=== PATIENT | male | born 1995 | race Caucasian/White ===

== ENCOUNTER 2018-09-18 18:47 | Emergency (ER) | payer BC, SELFPAY ==
[2018-09-18 18:47] VITALS: BP 165/91; PULSE 79; RESP 18; TEMP 36.2; O2SAT 98; BMI 44.3
--- NOTE | 2018-09-18 19:00 | ED.DCSUM_ITS ---
- ER Visit Summary Date of Service: 09/18/18 Chief Complaint: Tooth pain History of Present Illness: The patient is a 23 M who has some tooth pain. He has had this for 1 week. Is worse over the past hour. He has hot and cold sensitivity. No fevers. No facial swelling. He tried Tylenol without any reli ef. He denies seeing a dentist. Physical Examination: Vital signs reviewed. Mouth exam reveals widespread dental decay. Teeth on the right lower are all tender. There is no gingival abscess. Test Results: None performed Emergency Department Course and Treatment: Patient will be treated with Pen-Vee K and naproxen. Same for home. He will need to see a dentist and follow-up Treatment Plan: [] Disposition: Discharge Impression: Odontalgia This note was generated with [employer] dictation software. It may contain incorrect words, spelling, and punctuation that were not noted in review of the chart prior to signing ED Disposition - Plan for ED Patient: Referrals: Abdulaziz Vivas III, MD [Primary Care Provider] -
--- NOTE | 2018-09-18 19:00 | ED.DEP ---
ED Disposition - Plan for ED Patient: Disposition: Home or Assisted Living Instructions: ED Tooth Pain Prescriptions: Naproxen [Naprosyn] 500 mg PO BID PRN #20 tab Penicillin V Potassium 500 mg PO 4X/DAY #28 tab Referrals: Abdulaziz Vivas III, MD [Primary Care Provider] -
[2018-09-18] MEDS: Penicillin Vk 250 MG Tablet 500 MG PO (19:08)
[2018-09-18] MEDS: Naproxen 500 MG Tablet PO (19:08)
[2018-09-18 19:14] VITALS: BP 156/85; PULSE 72; RESP 16; O2SAT 97
== END 2018-09-18 19:16 | disposition home or self-care (01) ==
LOC: ED 19:10
PROVIDERS: Emergency Provider Emergency Medicine; Family Provider Family Medicine; PCP Family Medicine
DX: K02.9 Dental caries, unspecified (principal); Z72.0 Tobacco use
CPT/HCPCS: 99283

== ENCOUNTER 2022-08-29 17:31 | Emergency (ER) | payer BC, SELFPAY ==
[2022-08-29 17:34] VITALS: BP 163/69; PULSE 100; RESP 17; TEMP 36.7; O2SAT 98; BMI 42.8
--- NOTE | 2022-08-29 17:56 | EDS_ITS ---
HPI HPI - Psych History of Present Illness Chief Complaint: Mental Health Detail of Chief Complaint: Depression, suicidal ideation Informant: patient and spouse/S.O. Narrative Narrative: Patient presents per recommendation of counseling center for psychiatric evaluation. He reports a longstanding history of depression since he was a child. 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 His is at bedside with him and states that he does seem to be depressed in the off season and is having problems with insomnia. When he does sleep he has nightmares. He has had intermittent thoughts of harming himself by shooting himself. He reported he does have access to guns in the home that are locked up. states that she sees a counselor at the counseling center and had mentioned to her counselor recently that she thought her would benefit from treatment. They recommended he call for an appointment to be evaluated. When they called today they were told that family take walk-ins and they were closing in 14 minutes. During the questioning it came up that he had thoughts of hurting himself and he was advised that he needed to present to the emergency room. If he did not present to the emergency room they would send the telephone surveyor to his home to check on him. Patient denies any prior suicide attempt. [facility] Medical History (Updated 08/29/22 @ 18:[address] Coco Faust MD) Asthma Depression Home Medications hydroxyzine HCl 50 mg tablet 50 mg PO BID PRN anxiety, insomnia #20 tabs 08/29/22 [Rx Last Taken Unknown] Allergy/AdvReac Type Severity Reaction Status Date / Time levofloxacin [From Levaquin] Allergy Low white Verified 08/29/22 17:37 blood cell Social History (Updated 08/29/22 @ 18:[address] Coco Faust MD) Smoking Status: Current every day smoker tobacco type: e-cigarettes alcohol intake: never substance use type: does not use ROS ROS ED Constitutional Constitutional ED: Denies chills or fever(s) Eyes Eyes: Denies change in vision or discharge from eye(s) ENT ENT ED: Denies discharge from eye(s), rhinorrhea or sore throat Cardiovascular Cardiovascular: Denies chest pain or palpitations Respiratory/Chest Respiratory/Chest: Denies cough or dyspnea Gastrointestinal Gastrointestinal: Denies abdominal pain, diarrhea, nausea or vomiting Genitourinary Genitourinary ED: Denies difficulty urinating or dysuria Musculoskeletal Musculoskeletal: Denies back pain or extremity pain Integumentary Denies Abrasions or rash Neurologic Neurologic: Denies headache(s) or weakness Psychiatric Psychiatric: Reports depression and suicidal ideation Endocrine Endocrinology: Denies polydipsia or polyuria Allergic/Immunologic Allergic/Immunologic ED: Denies lip swelling or urticaria EXAM Physical Exam Const Vital Signs: 08/29/22 17:34 Temperature 98.1 F Temperature Source Temporal Pulse Rate 100 Respiratory Rate 17 Blood Pressure 163/69 H Blood Pressure Mean 100 Pulse Ox 98 Oxygen Delivery Method Room Air Positive well nourished and well developed General Appearance ED: well developed HEENT Reports normocephalic and head/scalp atraumatic Eyes PERRL and EOMs intact bilaterally Neck supple Chest Wall inspection of chest normal and palpation of chest normal Resp normal respiratory effort and clear to auscultation bilaterally Cardio regular rate and regular rhythm GI normal to inspection, nondistended, normoactive bowel sounds Palpation: soft Back/Spine no CVA tenderness Extremity normal to inspection Neuro oriented x3 and no sensory deficits noted Sensorium / Orientation: alert Motor Exam: strength 5/5 throughout Psych mental status grossly normal Appearance: grossly normal, appropriate and well kempt Activity / Motor Behavior: appropriate eye contact Speech: normal speech Mood & Affect: depressed Thought Process: normal thought process Skin no rashes or lesions noted MDM MDM MDM Narrative Medical decision making narrative: While patient does admit to some suicidal ideation with a plan, he states this has been an ongoing problem for several years. He is not to the point where he recognizes he needs some help and reached out today to get that help. I will have social work speak with the patient as well. At this point he is willing to have the guns locked and for him to not have access to the herman. is willing to ensure that he does not have medication access, etc. Treatment and Re-Evaluation Narrative: Patient seen and evaluated by social work. They agree patient is appropriate for safety plan and discharged home. Return instructions are given. Patient and are both comfortable with this plan. Discharge Plan Triage Chief Complaint: Mental Health ED Provider: Coco Faust Dx/Rx/DC Orders Clinical Impression: Depression Instructions: ED Depression Prescriptions: New hydroxyzine HCl 50 mg tablet 50 mg PO BID PRN (Reason: anxiety, insomnia) Qty: 20 0RF Primary Care Provider: Care Physician,No Primary Referrals: Counseling,Center [Group of Physicians] - As soon as possible Disposition Disposition: Home, Self Care
--- NOTE | 2022-08-29 19:43 | CM.ED ---
Social Work Psychiatric Assessment Reason for Consult: mental health Informant: PatientJacoby Identified Gender/ Sexual Orientation: Patient identifies as a heterosexual male Chief Compliant: Patient states he [facility] today to discuss counseling services but due to him making a statement about a gun they encouraged him to go into the ED for an evaluation. ? Martial Status/ History: for almost four years Living Situation: Patient currently lives with his and two kids in a house. Patient states the house is set up similar to a duplex with his parents also living in the house. Support/ Resources: Patient reports his is his main support and also reports having friends he can vent to. No current resources. ? History: None Education and Employment History: Patient graduated from [employer] with no post high school education. 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 ? Mental Health History: Patient reports he has been struggling with depression since he was a kid but never received counseling services. Patient states he recently started to participate in his ?s counseling sessions and was encouraged to engage in individual services as well. Patient reports he isn?t prescribed medications for his mental health, has never been to a psychiatric hospital and is unaware of family history regarding mental health. Patient states he is diagnosed with depression and anxiety. 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 Patient explained he use to cope with stress by overworking. ? Coping Skills: Patient states work used to be main coping skill but now he either plays video games or does something to distract his mind. ? Abuse Issues: ? Emotional: none reported ? Physical: None reported ? Sexual: none reported Substance Abuse History: Patient denies any substance use besides situational drinking with friends a few times a year. Risk to Self/ Others: ? Suicidal: Patient states he has struggled with passive thoughts for years. 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 Patient?s current plan is to commit suicide by gun in a hotel room. Patient states his suicidal thoughts last for only seconds. Patient reports feeling suicidal in November due to marital issues and stated his intent to commit suicide on a scale of 1-10 was about a 6. Patient states his current intent on a scale from 1-10 is a 2. Patient states his thoughts come and go every few months. Patient states his thoughts are typically ?this sucks and that would be an easy out?. Patient reports his and kids are his reasons to live, explaining he wouldn?t want them to hurt because of his struggles. ? Homicidal: denied ? Violence towards self/others: None reported Mental Status: ? Orientation: x3 ? Appearance: Clean and appropriate ? Mood/affect: appropriate and cooperative ? Communication Pattern: responds to questions ? Thought Process: appropriate, denies AH/VH ? General Intellectual Functioning: average Judgement: good Insight: good Assessment: Patient presented to the ED due to [facility] recommending patient comes in for an evaluation or have a wellness check by local police after patient made a statement about a plan. Patient reports having passive thoughts with a plan but little intent. Patient reports having the same plan for years with low intent. Patient reports he is interested in counseling services as he feels he isn?t able to manage his symptoms independently anymore. Patient reports his family is his main protective factor. BARBER consulted with MD Faust regarding patient?s symptoms and safety concerns. MD in agreement that patient would benefit from a safety plan home. Sitter no longer required as patient is low risk for suicide. RN Updated. BARBER met with patient and patient?s and requested permission to speak to patient with his present, patient agreed. SW explained MD Faust and SW were in agreement that patient would benefit from a safety plan and then returning home, patient was in agreement. SW, patient and patient?s completed patient?s safety plan. SW educated patient about decreasing lethality in the home. Patient reports no concerns about medication or sharps and states his has the herman to his gun safes. Patient and in agreement with safety plan. SW provided patient with a copy of the SP and explained a vp digital marketing social media and crm would be following up with him the following day. Patient also encouraged to contact [facility] to discuss services. Copy of safety plan in patient?s chart. Plan: Patient to be discharged home (once medically cleared) with safety plan. SW will follow up tomorrow. Morena Cook MSW, PEGGY
--- NOTE | 2022-08-30 09:09 | CM.ED ---
SW Note SW contacted patient to follow up about safety plan that was completed in the ED 08/29/22. Patient states he hasn't experienced any suicidal thoughts since yesterday. Patient inquired about contacting [facility]. SW encouraged patient to contact them if he is in crisis or has safety concerns over the weekend and follow up on Thursday to discuss his evaluation at the ED and need for counseling services. SW then educated patient about [facility] IOP and PHP programs as well as provided patient with contact information for those programs. Patient was receptive towards information and reported no other concerns or needs. SW reminded patient to contact crisis or return to ED if symptoms increase or worsen, patient states understanding. Plan: Patient to follow up with [facility] or [facility] regarding IOP and PHP Morena CORDOVA, PEGGY
== END 2022-08-29 18:54 | disposition home or self-care (01) ==
PROVIDERS: Emergency Provider Emergency Medicine; Visit Provider Emergency Medicine
DX: F32.A Depression, unspecified (principal); R45.851 Suicidal ideations; F17.290 Nicotine dependence, other tobacco product, uncomplicated
CPT/HCPCS: 99283